=== PATIENT | male | born 1965 | race African-American/Black ===

== ENCOUNTER 2016-06-07 10:51 | Inpatient (IN) | payer MEDICAID ==
[~2016-06-07] VITALS: Ht 190.5 cm; Wt 139.3 kg
[~2016-06-07 10:51] MED LIST: AMIODARONE HCL100 MG ORAL; BENAZEPRIL HCL40 MG ORAL; CARVEDILOL25 MG ORAL; DIGOXIN0.25 MG/5 PO; FUROSEMIDE40 MG/5 ML ORAL; METFORMIN HCL500 M1 ORAL; SPIRONOLACTONE25 MG ORAL; ZOCOR20 MG ORAL
[2016-06-07] MEDS ORDERED: Mylanta II UD 30ml ORAL ONE (11:00)
[2016-06-07] MEDS ORDERED: Morphine Sulfate 2mg/ml Inj IVP ONE (11:00)
[2016-06-07] MEDS ORDERED: Famotidine 20 MG/ 2ML VIAL IVP ONE (11:00)
--- NOTE | 2016-06-07 11:00 | Emergency Room Report ---
History of Present Illness General Chief Complaint: Abdominal Pain Source: Patient, EMS Present Illness HPI Patient presents with epigastric pain. He is also vomiting and is unable to keep anything down for one week. He's suffered from a stroke recently 02/2016) . He is having cardiac monitoring at the moment. Denies any chest pain. He feels weak. Denies vomiting blood and melena. Denies any fevers or chills. He feels weak when he stands up. There is some bile at times when he vomits. The pain is 9/10, more epigastric, radiates slightly to chest, but not to back. H/O HTN and CHF. There is leg edema, but no tenderness of the calves. The stroke left him weak on the L side. He denies prior renal failure. Making urine without dysuria. Denies depression. Allergies: Coded Allergies: No Known Allergies (Verified , 08/16/09) Patient History Past Medical History: see triage record Social History: Denies: smoking Social History Narrative at home with family Reviewed Nursing Documentation: PMH: Agreed, PSxH: Agreed Nursing Documentation-PMH Past Medical History: No History, Except For Hx Cardiac Problems: Yes - RIGHT LEG DVT,CHF,CHOLESTEROL Hx Hypertension: Yes Hx Diabetes: Yes Review of Systems All Other Systems: negative except mentioned in HPI Physical Exam Vital Signs Date Time Temp Pulse Resp B/P Pulse Ox O2 Delivery O2 Flow Rate FiO2 06/07/16 10:49 98.2 80 18 116/66 98 Room Air Sp02 EP Interpretation: reviewed, normal General Appearance: well appearing, no apparent distress, GCS 15, obese Head: normocephalic Eyes: bilateral eye PERRL, bilateral eye normal inspection ENT: dry mucus membranes Neck: supple Respiratory: lungs clear, normal breath sounds, other - event monitor Cardiovascular #1: regular rate, rhythm, edema Cardiovascular #2: 2+ radial (R) Gastrointestinal: normal inspection, normal bowel sounds, no mass, non- distended, no guarding, no rebound, tenderness - epigastric Musculoskeletal: back normal, normal range of motion, no calf tenderness Neurologic: alert, oriented x3, core maker III-XII nml as tested, DTRs symmetric, sensory intact, motor weakness - L 4+/5 Psychiatric: mood/affect normal Skin: normal inspection, warm/dry Medical Decision Making Diagnostic Impression: Primary Impression: Acute renal failure Qualified Codes: N17.9 - Acute kidney failure, unspecified Additional Impressions: Persistent vomiting Abdominal pain Qualified Codes: R10.13 - Epigastric pain Status post stroke ER Course Patient presents with persistent vomiting. Ddx: gastroenteritis, SBO, gastritis , PUD, pancreatitis, dehydration, electrolyte abnormalities, AMI amongst others. Emergent evaluation with EKG, labs, CXR and abd films. Treatment with hydration, zofran, pepcid. Labs significant for renal failure (not needing dialysis). EKG, CXR and abdominal films unremarkable. Improved slightly with treatment, but needs evaluation of renal failure and repeat labs. Admit med Dr. James. Laboratory Tests Test 06/07/16 11:15 06/07/16 12:35 White Blood Count 10.2 K/UL (4.8-10.8) Red Blood Count 4.54 M/UL (4.70-6.10) L Hemoglobin 14.6 G/DL (14.2-18.0) Hematocrit 42.2 % (42.0-52.0) Mean Corpuscular Volume 93 FL (80-99) Mean Corpuscular Hemoglobin 32.1 PG (27.0-31.0) H Mean Corpuscular Hemoglobin Concent 34.6 G/DL (32.0-36.0) Red Cell Distribution Width 12.8 % (11.6-14.8) Platelet Count 153 K/UL (150-450) Mean Platelet Volume 8.4 FL (6.5-10.1) Neutrophils (%) (Auto) 73.5 % (45.0-75.0) Lymphocytes (%) (Auto) 14.7 % (20.0-45.0) L Monocytes (%) (Auto) 10.4 % (1.0-10.0) H Eosinophils (%) (Auto) 0.5 % (0.0-3.0) Basophils (%) (Auto) 0.9 % (0.0-2.0) Prothrombin Time 11.9 SEC (9.30-11.50) H Prothrombin Time INR 1.2 (0.9-1.1) H PTT 27 SEC (23-33) Sodium Level 142 mEQ/L (135-145) Potassium Level 4.6 mEQ/L (3.4-4.9) Chloride Level 102 mEQ/L (98-107) Carbon Dioxide Level 21 mEQ/L (20-30) Anion Gap 19 (5-15) H Blood Urea Nitrogen 28 mg/dL (7-23) H Creatinine 3.0 mg/dL (0.7-1.2) H Estimate Glomerular Filtration Rate 26.9 mL/min (>60) Glucose Level 119 mg/dL (74-106) H Calcium Level 9.0 mg/dL (8.6-10.2) Total Bilirubin 1.5 mg/dL (0.0-1.2) H Direct Bilirubin 0.3 mg/dL (0.1-0.3) Aspartate Amino Transferase (AST) 16 U/L (5-40) Alanine Aminotransferase (ALT) 14 U/L (3-41) Alkaline Phosphatase 78 U/L (40-129) Total Creatine Kinase 61 U/L (38-174) Troponin I < 0.30 ng/mL (<=0.30) Total Protein 7.7 g/dL (6.6-8.7) Albumin 4.0 g/dL (3.5-5.2) Globulin 3.7 g/dL Albumin/Globulin Ratio 1.0 (1.0-2.7) Lipase 20 U/L (< 60) Urine Color Brown Urine Appearance Cloudy Urine pH 5 (4.5-8.0) Urine Specific [place] 1.025 (1.005-1.035) Urine Protein 3+ (NEGATIVE) H Urine Glucose (UA) Negative (NEGATIVE) Urine Ketones 2+ (NEGATIVE) H Urine Occult Blood 5+ (NEGATIVE) H Urine Nitrite Positive (NEGATIVE) H Urine Bilirubin 2+ (NEGATIVE) H Urine Ictotest Negative Urine Urobilinogen 4 MG/DL (0.0-1.0) H Urine Leukocyte Esterase 2+ (NEGATIVE) H Urine RBC Tntc /HPF (0 - 0) H Urine WBC 2-4 /HPF (0 - 0) Urine Squamous Epithelial Cells Many /LPF (NONE/OCC) H Urine Amorphous Sediment Moderate /LPF (NONE) H Urine Bacteria Few /HPF (NONE) EKG Diagnostic Results Rate: normal Rhythm: NSR ST Segments: no acute changes Rhythm Strip Diag. Results EP Interpretation: yes Rhythm: NSR, no PVC's, no ectopy Chest X-Ray Diagnostic Results EP Interpretation: Yes Findings: no consolidation, no effusion, no pneumothorax, no acute cardiopulmonary disease Number of Views: 1 Other X-Ray Diagnostic Results Other X-Ray Diagnostic Results : X-Ray Ordered: abd EP Interpretation: Yes Findings: other - NSBGP, no masses, no SBO Number of Views: 2 Last Vital Signs Date Time Temp Pulse Resp B/P Pulse Ox O2 Delivery O2 Flow Rate FiO2 06/07/16 15:54 98.2 64 18 108/63 99 Room Air Status: improved Disposition: ADMITTED INPATIENT Condition: Serious Ronny Sullivan M.D. Jun 07, 2016 11:00
[2016-06-07 11:32] LABS: BASOPHILS % (AUTO) 0.9 % (0.0-2.0); EOSINOPHILS % (AUTO) 0.5 % (0.0-3.0); LYMPHOCYTES % (AUTO) 14.7 % (20.0-45.0); MEAN CORPUSCULAR HEMOGLOBIN 32.1 PG (27.0-31.0); MEAN CORPUSCULAR HGB CONC 34.6 G/DL (32.0-36.0); MEAN CORPUSCULAR VOLUME 93 FL (80-99); MEAN PLATELET VOLUME 8.4 FL (6.5-10.1); MONOCYTES % (AUTO) 10.4 % (1.0-10.0); NEUTROPHILS % (AUTO) 73.5 % (45.0-75.0); PLATELET COUNT 153 K/UL (150-450); RED BLOOD COUNT 4.54 M/UL (4.70-6.10); RED CELL DISTRIBUTION WIDTH 12.8 % (11.6-14.8); WHITE BLOOD COUNT 10.2 K/UL (4.8-10.8)
[2016-06-07 11:44] LABS: INR 1.2 (0.9-1.1); PROTHROMBIN TIME 11.9 SEC (9.30-11.50)
[2016-06-07 11:47] LABS: TROPONIN I < 0.30 ng/mL (<=0.30)
[2016-06-07 11:50] LABS: ALANINE AMINOTRANSFERASE 14 U/L (3-41); ANION GAP 19 (5-15); ASPARTATE AMINO TRANSFERASE 16 U/L (5-40); CARBON DIOXIDE 21 mEQ/L (20-30); CHLORIDE 102 mEQ/L (98-107); GLOMERULAR FILTRATION RATE 26.9 mL/min (>60); HEMOLYSIS 20; LIPASE 20 U/L (< 60); POTASSIUM 4.6 mEQ/L (3.4-4.9); SODIUM 142 mEQ/L (135-145); TOTAL PROTEIN 7.7 g/dL (6.6-8.7)
[2016-06-07 12:02] LABS: BILIRUBIN,DIRECT 0.3 mg/dL (0.1-0.3)
[2016-06-07] MEDS ORDERED: FAMOTIDINE20 MG ORAL (12:02)
[2016-06-07] MEDS ORDERED: ZOFRAN4 M3 ORAL (12:02)
[2016-06-07] MEDS ORDERED: DIGOXIN250 MCG ORAL (12:06)
[2016-06-07] MEDS ORDERED: TOTAL B WITH C1 EACH PO (12:06)
[2016-06-07] MEDS ORDERED: ATORVASTATIN CA20 MG ORAL (12:06)
[2016-06-07] MEDS ORDERED: LISINOPRIL5 MG ORAL (12:08)
[2016-06-07] MEDS ORDERED: FOLIC ACID1 MG ORAL (12:08)
[2016-06-07] MEDS ORDERED: ASPIR-LOW81 MG ORAL (12:08)
[2016-06-07] MEDS ORDERED: DIGOXIN0.125 MG/2 ORAL (12:08)
[2016-06-07 12:43] VITALS: BP 102/63
[2016-06-07 12:54] LABS: APPEARANCE,URINE CLOUDY; KETONES,URINE 2+ (NEGATIVE); LEUKOCYTE ESTERASE ,URINE 2+ (NEGATIVE); NITRITE,URINE POSITIVE (NEGATIVE); PH,URINE 5 (4.5-8.0); PROTEIN,URINE 3+ (NEGATIVE); UROBILINOGEN,URINE 4 MG/DL (0.0-1.0)
--- NOTE | 2016-06-07 13:01 | Diagnostic Imaging Report ---
Indication: Abdominal pain Technique: Supine view of the abdomen Comparison: none Findings: The bowel gas pattern is unremarkable. No unusual masses or calcifications. There are degenerative changes of the thoracic or lumbar spine Impression: No acute process
[2016-06-07 13:12] LABS: AMORPHOUS SEDIMENT,UR MODERATE /LPF; BACTERIA,URINE FEW /HPF; ICTOTEST NEGATIVE; RBC,URINE TNTC /HPF (0 - 0); SQUAMOUS EPITHELIAL CELL,UR MANY /LPF (NONE/OCC)
--- NOTE | 2016-06-07 13:33 | Diagnostic Imaging Report ---
Indication: Chest pain Technique: One view of the chest Comparison: 10/25/2013 Findings: Lungs and pleural spaces are clear. Heart size is borderline enlarged. Better inspiration on the current exam. Otherwise, no significant change Impression: No acute process
[2016-06-07 15:20] VITALS: BP 108/63
[2016-06-07 15:54] VITALS: BP 108/63
[2016-06-07 16:56] VITALS: BP 119/68
[2016-06-07] MEDS ORDERED: Zolpidem 5mg tab ORAL PRN (17:45)
[2016-06-07] MEDS ORDERED: Morphine Sulfate 4mg/ml Inj IVP PRN (17:45)
[2016-06-07] MEDS ORDERED: Morphine Sulfate 2mg/ml Inj IVP PRN (17:45)
[2016-06-07] MEDS ORDERED: Milk of Magnesia 30ml Ud ORAL PRN (17:45)
[2016-06-07] MEDS ORDERED: Pantoprazole Inj IV SCH (19:30)
[2016-06-07] MEDS ORDERED: Carvedilol 25mg Tab ORAL SCH (19:30)
[2016-06-07] MEDS ORDERED: Amiodarone 200mg tab ORAL SCH (19:30)
[2016-06-07] MEDS ORDERED: Digoxin Elixir 0.125mg ORAL SCH (19:30)
[2016-06-07] MEDS: D5 1/2NS 1,000 ML IV SCH (20:14)
[2016-06-07 20:25] VITALS: BP 111/60
[2016-06-07] MEDS: NovoLOG Insulin Flexpen SUBQ SCH (20:31)
[2016-06-07] MEDS ORDERED: Atorvastatin 20mg tab ORAL SCH (21:00)
[2016-06-08] VITALS (7 sets, daily range): BP systolic 106–117; BP diastolic 59–67
[2016-06-08] MEDS: D5 1/2NS 1,000 ML IV SCH ×3 (05:54→16:15)
[2016-06-08] MEDS: NovoLOG Insulin Flexpen SUBQ SCH ×5 (06:01→21:00)
[2016-06-08] MEDS ORDERED: Morphine Sulfate 2mg/ml Inj IVP PRN (08:45)
[2016-06-08] MEDS ORDERED: Morphine Sulfate 4mg/ml Inj IVP PRN (08:45)
[2016-06-08] MEDS ORDERED: Amiodarone 200mg tab ORAL SCH (09:00)
[2016-06-08] MEDS ORDERED: Carvedilol 25mg Tab ORAL SCH (09:00)
[2016-06-08] MEDS ORDERED: Aspirin EC 81mg tab ORAL SCH (09:00)
[2016-06-08] MEDS: Pantoprazole Inj IV SCH (09:01)
[2016-06-08] MEDS: Aspirin EC 81mg tab ORAL SCH (09:03)
[2016-06-08 09:36] LABS: HEMOGLOBIN A1C 4.8 % (< 6.0)
[2016-06-08 09:42] LABS: CALCIUM 8.6 mg/dL (8.6-10.2); CHOLESTEROL/HDL RATIO 3.1 (3.3-4.4); CREATININE 2.5 mg/dL (0.7-1.2); GLOMERULAR FILTRATION RATE 33.2 mL/min (>60); MAGNESIUM 1.8 mg/dL (1.7-2.5); POTASSIUM 4.3 mEQ/L (3.4-4.9); TOTAL PROTEIN 7.3 g/dL (6.6-8.7)
[2016-06-08 09:57] LABS: BILIRUBIN,DIRECT 0.3 mg/dL (0.1-0.3)
--- NOTE | 2016-06-08 15:53 | Cardiac Electrophysiology PN ---
Subjective Subjective [id number] Objective Last 24 Hour Vital Signs Date Time Temp Pulse Resp B/P Pulse Ox O2 Delivery O2 Flow Rate FiO2 06/08/16 12:00 58 06/08/16 11:40 97.3 60 18 106/59 95 Room Air 06/08/16 09:01 62 113/61 06/08/16 09:00 113/61 06/08/16 08:05 97.0 62 18 113/61 100 Room Air 06/08/16 08:00 60 06/08/16 04:30 98.0 60 20 107/64 99 Room Air 06/08/16 04:00 63 06/08/16 02:39 97.7 65 20 109/66 100 Room Air 06/08/16 00:49 97.9 63 20 117/67 99 Room Air 06/07/16 20:25 97.7 65 18 111/60 96 Room Air 06/07/16 20:23 65 06/07/16 20:04 111/60 06/07/16 19:30 65 111/60 06/07/16 16:56 97.7 68 18 119/68 98 Room Air 06/07/16 16:20 98.2 64 18 108/63 99 Room Air 06/07/16 15:54 98.2 64 18 108/63 99 Room Air Intake and Output 06/07/16 06/08/16 19:00 07:00 Intake Total 240 ml 820 ml Balance 240 ml 820 ml Intake Oral 240 ml 120 ml IV Total 700 ml # Voids 1 2 Laboratory Tests Test 06/08/16 08:35 Sodium Level 142 mEQ/L (135-145) Potassium Level 4.3 mEQ/L (3.4-4.9) Chloride Level 101 mEQ/L (98-107) Carbon Dioxide Level 25 mEQ/L (20-30) Anion Gap 16 (5-15) H Blood Urea Nitrogen 24 mg/dL (7-23) H Creatinine 2.5 mg/dL (0.7-1.2) H Estimat Glomerular Filtration Rate 33.2 mL/min (>60) Glucose Level 110 mg/dL (74-106) H Hemoglobin A1c 4.8 % (< 6.0) Calcium Level 8.6 mg/dL (8.6-10.2) Magnesium Level 1.8 mg/dL (1.7-2.5) Total Bilirubin 1.5 mg/dL (0.0-1.2) H Direct Bilirubin 0.3 mg/dL (0.1-0.3) Aspartate Amino Transf (AST/SGOT) 15 U/L (5-40) Alanine Aminotransferase (ALT/SGPT) 13 U/L (3-41) Alkaline Phosphatase 76 U/L (40-129) Total Protein 7.3 g/dL (6.6-8.7) Albumin 3.7 g/dL (3.5-5.2) Globulin 3.6 g/dL Albumin/Globulin Ratio 1.0 (1.0-2.7) Triglycerides Level 145 mg/dL (< 150) Cholesterol Level 98 mg/dL (< 200) LDL Cholesterol 37 mg/dL (60-99) L HDL Cholesterol 32 mg/dL (> 60) Cholesterol/HDL Ratio 3.1 (3.3-4.4) EMMANUEL SOARES Jun 08, 2016 15:53
[2016-06-08] MEDS: Carvedilol 25mg Tab ORAL SCH (17:40)
[2016-06-08] MEDS ORDERED: Milk of Magnesia 30ml Ud ORAL PRN (17:45)
[2016-06-08] MEDS ORDERED: Zolpidem 5mg tab ORAL PRN (17:45)
--- NOTE | 2016-06-08 20:39 | History and Physical Report ---
DATE OF ADMISSION: 06/07/2016 HISTORY OF PRESENT ILLNESS: The patient is a 50-year-old, male, who is known to me from previous admission in 2009. At that time, he was admitted for pulmonary embolism and DVT. He comes now with epigastric pain, nausea, vomiting and symptoms have been going on for about a week. The patient had also a recent CVA with left-sided weakness. PAST MEDICAL HISTORY: Also history of congestive heart failure, hyperlipidemia, hypertension and diabetes. ALLERGIES: No known drug allergies. SOCIAL HISTORY: The patient lives at home with . No history of smoking or alcohol abuse. REVIEW OF SYSTEMS: As above. PHYSICAL EXAMINATION: GENERAL: The patient is a morbidly obese male, in no acute distress. VITAL SIGNS: Blood pressure 160/66, pulse 80, temperature 98.2 degrees, and respiratory rate 18. HEENT: [place] conjunctivae. Anicteric sclerae. NECK: Supple. LUNGS: Clear to auscultation. HEART: S1 and S2 without murmurs or rubs. ABDOMEN: Soft and nontender. EXTREMITIES: No cyanosis or edema. LABORATORY FINDINGS: The digoxin level is 4.2. Chemistry panel shows serum sodium of 142, potassium 4.3, chloride 101, CO2 25, BUN 24, and creatinine 2.5. Blood sugar is 110. Serum creatinine was 3 yesterday. LDL is 177 and triglycerides 145. CBC shows a WBC of 10.2, hematocrit 42.2, hemoglobin 14.6, and platelets 115,000. ASSESSMENT: This is a 50-year-old, male, who was admitted with nausea, vomiting and diagnosed of beach toxicity. He has a history of congestive heart failure but possibly also atrial fibrillation, based on his medications that he was taking. He has diabetes and hypertension. PLAN: The patient was taken off digoxin. He will be on telemetry bed. His diabetes will be advanced as tolerated. The patient will be seen by machine shorthand teacher, Dr. Paula. Fidel James M.D. DR: KAVON JOB#: [id number] CC:
[2016-06-08] MEDS: Atorvastatin 20mg tab ORAL SCH (21:17)
--- NOTE | 2016-06-08 23:19 | Consultation ---
DATE OF CONSULTATION: 06/08/2016 CARDIOLOGY CONSULTATION REFERRING PHYSICIAN: Fidel James M.D. REASON FOR CONSULTATION: HISTORY OF PRESENT ILLNESS: The patient is a 50-year-old gentleman with a history of hypertension, congestive heart failure, and atrial fibrillation who presented through the emergency room with nausea and vomiting for about one week. The patient, however, denies any chest pain or shortness of breath. The lab work shows that the patient was in renal failure as well as with a creatinine of 3, and was having digoxin level of 4. The patient, however, was in sinus rhythm and was admitted to telemetry for further evaluation. At the time of my evaluation, the patient denies any chest pain, palpitation, or shortness of breath. PAST MEDICAL HISTORY: 1. Hypertension. 2. Congestive heart failure. FAMILY HISTORY: Noncontributory. SOCIAL HISTORY: He does not smoke or drink alcohol. REVIEW OF SYSTEMS: Review of systems was performed and was negative other what was mentioned in the history of present illness. PHYSICAL EXAMINATION: VITAL SIGNS: Blood pressure is 106/59, pulse is 60, respirations 18, and he is afebrile. HEAD AND NECK: Shows no JVD. LUNGS: Clear. CARDIOVASCULAR: Shows regular S1 and S2 without gallop or murmur. ABDOMEN: Soft. EXTREMITIES: 1+ pitting edema. LABORATORY DATA: Lab workup shows white count 10.2, hemoglobin 14.7, hematocrit 42.2, and platelets 152,000. Sodium 142, potassium 4.3, BUN of 24, creatinine of 2.5, and glucose of 110. His digoxin level is 4.2. INR is 1.2. The urinalysis showed too numerous to count RBC, 2 to 4 WBCs, and 5+ occult blood. ASSESSMENT AND PLAN: 1. Digoxin toxicity. This is likely the patient has a history of amiodarone and renal failure. The patient is in sinus rhythm. Decrease amiodarone to 100 mg daily and keep the patient off digoxin at this point. The patient is also on Coreg 25 mg daily that would switch to appropriate dosing of 12.5 mg b.i.d. 2. Congestive heart failure. Echocardiogram is pending. Continue Coreg and Zestril. Decrease Lotensin to 20 mg b.i.d., especially in view of renal failure. 3. Hyperlipidemia, on Lipitor. 4. Renal failure, currently under management by Dr. James. Thank very much, Dr. James, for allowing me to participate in the care of this patient. Please do not hesitate to contact me for any questions regarding my evaluation. Jas Paula M.D. DR: LORI JOB#: [id number] CC:
[2016-06-09] VITALS (7 sets, daily range): BP systolic 89–153; BP diastolic 49–87
[2016-06-09] MEDS: D5 1/2NS 1,000 ML IV SCH ×3 (02:24→22:31)
[2016-06-09] MEDS: NovoLOG Insulin Flexpen SUBQ SCH ×4 (06:08→20:51)
[2016-06-09] MEDS: Amiodarone 200mg tab ORAL SCH (09:00)
[2016-06-09] MEDS: Carvedilol 25mg Tab ORAL SCH (09:00)
[2016-06-09] MEDS ORDERED: Digoxin Elixir 0.125mg ORAL SCH (09:00)
[2016-06-09] MEDS: Pantoprazole Inj IV SCH (09:06)
[2016-06-09] MEDS: Aspirin EC 81mg tab ORAL SCH (09:06)
--- NOTE | 2016-06-09 12:02 | Consultation ---
Consult Note Assessment/Plan Advance diet check Dig level, BMP in AM Discussed with GODWIN Lindsay Jun 09, 2016 12:02
--- NOTE | 2016-06-09 12:02 | Cardiac Electrophysiology PN ---
Assessment/Plan Assessment/Plan 1. Digoxin toxicity. Likely due to effect of amiodarone and renal failure. The patient is in sinus rhythm. Recheck Dig level. 2. Bradycardia. Off Digoxin. Decrease Coreg to 6.25 bid. Continue Amiodarone 200 daily. 3. Congestive heart failure. Echocardiogram is pending. Continue Coreg and Lotensin 20 mg b.i.d. 4. ? Atrial fib based on dig, amio and Coreg. No documentation of atrial fib. Hold off on full anticoagulation specially that patient was not on Coumadin on admission. 5. Hyperlipidemia, on Lipitor. 6. Renal failure, currently under management by Dr. James. DW Dr James Subjective Subjective Feeling better. No arrhythmias on tele. No chest pain or SOB.Lowest heart rate 47 but asymptomatic. Objective Last 24 Hour Vital Signs Date Time Temp Pulse Resp B/P Pulse Ox O2 Delivery O2 Flow Rate FiO2 06/09/16 11:29 97.0 58 18 106/62 98 Room Air 06/09/16 09:00 56 101/59 06/09/16 09:00 101/59 06/09/16 08:00 60 06/09/16 07:50 97.3 56 18 101/59 99 Room Air 06/09/16 04:25 97.0 59 20 102/59 99 Room Air 06/09/16 04:00 54 06/09/16 01:15 103/56 06/09/16 00:05 97.0 58 20 89/49 98 Room Air 06/09/16 00:00 50 06/08/16 20:00 58 18 114/61 98 Room Air 06/08/16 20:00 53 06/08/16 17:40 57 115/61 06/08/16 17:40 115/61 06/08/16 16:00 98.1 57 18 115/61 98 Room Air 06/08/16 16:00 58 06/08/16 12:00 58 Intake and Output 06/08/16 06/09/16 19:00 07:00 Intake Total 240 ml 855 ml Output Total 400 ml Balance -160 ml 855 ml Intake Oral 240 ml IV Total 855 ml Output Urine Total 400 ml Labs Test 06/07/16 12:35 06/08/16 08:35 Urine Color Brown Urine Appearance Cloudy Urine pH 5 (4.5-8.0) Urine Specific [place] 1.025 (1.005-1.035) Urine Protein 3+ (NEGATIVE) Urine Glucose (UA) Negative (NEGATIVE) Urine Ketones 2+ (NEGATIVE) Urine Occult Blood 5+ (NEGATIVE) Urine Nitrite Positive (NEGATIVE) Urine Bilirubin 2+ (NEGATIVE) Urine Ictotest Negative Urine Urobilinogen 4 MG/DL (0.0-1.0) Urine Leukocyte Esterase 2+ (NEGATIVE) Urine RBC Tntc /HPF (0 - 0) Urine WBC 2-4 /HPF (0 - 0) Urine Squamous Epithelial Cells Many /LPF (NONE/OCC) Urine Amorphous Sediment Moderate /LPF (NONE) Urine Bacteria Few /HPF (NONE) Sodium Level 142 mEQ/L (135-145) Potassium Level 4.3 mEQ/L (3.4-4.9) Chloride Level 101 mEQ/L (98-107) Carbon Dioxide Level 25 mEQ/L (20-30) Anion Gap 16 (5-15) Blood Urea Nitrogen 24 mg/dL (7-23) Creatinine 2.5 mg/dL (0.7-1.2) Estimat Glomerular Filtration Rate 33.2 mL/min (>60) Glucose Level 110 mg/dL (74-106) Hemoglobin A1c 4.8 % (< 6.0) Calcium Level 8.6 mg/dL (8.6-10.2) Magnesium Level 1.8 mg/dL (1.7-2.5) Total Bilirubin 1.5 mg/dL (0.0-1.2) Direct Bilirubin 0.3 mg/dL (0.1-0.3) Aspartate Amino Transf (AST/SGOT) 15 U/L (5-40) Alanine Aminotransferase (ALT/SGPT) 13 U/L (3-41) Alkaline Phosphatase 76 U/L (40-129) Total Protein 7.3 g/dL (6.6-8.7) Albumin 3.7 g/dL (3.5-5.2) Globulin 3.6 g/dL Albumin/Globulin Ratio 1.0 (1.0-2.7) Triglycerides Level 145 mg/dL (< 150) Cholesterol Level 98 mg/dL (< 200) LDL Cholesterol 37 mg/dL (60-99) HDL Cholesterol 32 mg/dL (> 60) Cholesterol/HDL Ratio 3.1 (3.3-4.4) Objective HEAD AND NECK: Shows no JVD. LUNGS: Clear. CARDIOVASCULAR: Narciso S1 and S2 without gallop or murmur. ABDOMEN: Soft. EXTREMITIES: 1+ pitting edema. EMMANUEL RILEY Jun 09, 2016 12:02
[2016-06-09] MEDS ORDERED: D5 1/2NS 1000ml IV ONE (16:56)
[2016-06-09] MEDS: Atorvastatin 20mg tab ORAL SCH (20:50)
[2016-06-09] MEDS: Carvedilol 6.25mg Tab ORAL SCH (20:51)
[2016-06-10 00:21] VITALS: BP 107/53
[2016-06-10 04:16] VITALS: BP 100/59
[2016-06-10] MEDS: NovoLOG Insulin Flexpen SUBQ SCH ×3 (06:30→16:30)
[2016-06-10 07:33] LABS: EOSINOPHILS % (AUTO) 1.7 % (0.0-3.0); LYMPHOCYTES % (AUTO) 21.8 % (20.0-45.0); MEAN CORPUSCULAR HEMOGLOBIN 31.9 PG (27.0-31.0); MEAN CORPUSCULAR HGB CONC 34.4 G/DL (32.0-36.0); MEAN CORPUSCULAR VOLUME 93 FL (80-99); MEAN PLATELET VOLUME 8.9 FL (6.5-10.1); MONOCYTES % (AUTO) 12.5 % (1.0-10.0); PLATELET COUNT 148 K/UL (150-450); RED CELL DISTRIBUTION WIDTH 12.7 % (11.6-14.8); WHITE BLOOD COUNT 7.3 K/UL (4.8-10.8)
[2016-06-10 07:56] LABS: DIGOXIN 2.1 ng/mL (0.5-2.0)
[2016-06-10 07:59] LABS: ANION GAP 17 (5-15); CALCIUM 8.2 mg/dL (8.6-10.2); CARBON DIOXIDE 22 mEQ/L (20-30); CHLORIDE 101 mEQ/L (98-107); CREATININE 1.4 mg/dL (0.7-1.2); GLOMERULAR FILTRATION RATE > 60 mL/min (>60); HEMOLYSIS 2; POTASSIUM 3.9 mEQ/L (3.4-4.9); SODIUM 140 mEQ/L (135-145)
[2016-06-10 08:00] VITALS: BP 107/69
--- NOTE | 2016-06-10 08:32 | Cardiology Report ---
APPROVED REPORT EXAM: Two-dimensional and M-mode echocardiogram with Doppler and color Doppler. INDICATION Congestive Heart Failure M-Mode DIMENSIONS IVSd0.9 (0.7-1.1cm)Left Atrium (MM)4.1 (1.6-4.0cm) LVDd6.6 (3.5-5.6cm)Aortic Root3.5 (2.0-3.7cm) PWd1.1 (0.7-1.1cm)Aortic Cusp Exc.2.4 (1.5-2.0cm) LVDs5.6 (2.5-4.0cm) PWs1.0 cm Moderate left ventricular enlargement. Global left ventricular hypokinesis. Mid anterior septal dyskinesis. Apical akinesis. Left ventricular ejection fraction estimated to be 20-25%. No evidence of left ventricular hypertrophy. No evidence of pericardial fat or effusion. Mild left atrial enlargement by 2D. Right cardiac chamber sizes are within normal limits. Focal aortic valve sclerosis with adequate cusp excursion Thickened mitral valve leaflets with normal excursion. Mitral annulus and aortic root calcification. Pulmonic valve is well visualized. Normal tricuspid valve structure. IVC is normal in size with physiologic collapse. False tendon seen in left ventricle. A color flow and spectral Doppler study was performed and revealed: No aortic regurgitation. Mild mitral regurgitation. Left ventricular diastolic dysfunction grade 1. No tricuspid regurgitation.
[2016-06-10] MEDS: Amiodarone 200mg tab ORAL SCH (08:33)
[2016-06-10] MEDS: D5 1/2NS 1,000 ML IV SCH ×2 (08:33→18:15)
[2016-06-10] MEDS: Aspirin EC 81mg tab ORAL SCH (08:33)
[2016-06-10] MEDS: Carvedilol 6.25mg Tab ORAL SCH (08:34)
[2016-06-10 12:00] VITALS: BP 119/66
[2016-06-10] MEDS ORDERED: BENAZEPRIL HCL40 MG ORAL (12:07)
[2016-06-10] MEDS ORDERED: COREG6.25 MG ORAL (12:07)
[2016-06-10] MEDS ORDERED: PACERONE200 MG ORAL (12:07)
--- NOTE | 2016-06-10 12:13 | Consultation ---
Consult Note Assessment/Plan Dc vdictated # [id number] GODWIN CHAUDHRY Jun 10, 2016 12:13
[2016-06-10] MEDS ORDERED: LORazepam Inj 2mg/ml 1ml IV PRN (13:15)
--- NOTE | 2016-06-10 15:30 | Cardiac Electrophysiology PN ---
Assessment/Plan Status Narrative Moderate left ventricular enlargement. Global left ventricular hypokinesis. Mid anterior septal dyskinesis. Apical akinesis. Left ventricular ejection fraction estimated to be 20-25%. No evidence of left ventricular hypertrophy. No evidence of pericardial fat or effusion. Mild left atrial enlargement by 2D. Right cardiac chamber sizes are within normal limits. Focal aortic valve sclerosis with adequate cusp excursion Thickened mitral valve leaflets with normal excursion. Mitral annulus and aortic root calcification. Pulmonic valve is well visualized. Normal tricuspid valve structure. IVC is normal in size with physiologic collapse. False tendon seen in left ventricle. Assessment/Plan 1. Digoxin toxicity. Likely due to effect of amiodarone and renal failure. The patient is in sinus rhythm. Dig level today is 2.1.Keep off Dig 2. Bradycardia. Off Digoxin. Stable on Coreg 6.25 bid and Amiodarone 200 daily. 3. Congestive heart failure with EF 20-25%. Troponin negative. No chest pain. Continue Coreg and Lotensin 20 mg b.i.d.Add Lasix 40 mg po daily. Aldactone as out patient if renal function stabilizes. Cardiac cath as out patient. 4. ? Atrial fib based on dig, Amio and Coreg. No documentation of atrial fib. Hold off on full anticoagulation specially that patient was not on Coumadin on admission. 5. Hyperlipidemia, on Lipitor. 6. Renal failure,Cr improved to 1.4. DW RN Dr James Subjective Subjective Feeling better. No arrhythmias on tele. No chest pain or SOB. Expecting DC today. Objective Last 24 Hour Vital Signs Date Time Temp Pulse Resp B/P Pulse Ox O2 Delivery O2 Flow Rate FiO2 06/10/16 12:00 98.1 62 18 119/66 100 Room Air 06/10/16 12:00 50 06/10/16 08:34 58 107/69 06/10/16 08:33 107/69 06/10/16 08:00 62 06/10/16 08:00 98.1 55 18 107/69 99 06/10/16 04:16 98.6 55 19 100/59 95 Room Air 06/10/16 04:00 56 06/10/16 00:21 98.3 57 20 107/53 95 Room Air 06/10/16 00:00 62 06/09/16 20:51 77 153/87 06/09/16 20:00 97.4 77 18 153/87 97 Room Air 06/09/16 20:00 60 06/09/16 17:19 114/67 06/09/16 16:00 97.1 60 18 114/67 99 Room Air 06/09/16 16:00 54 Intake and Output 06/09/16 06/10/16 19:00 07:00 Intake Total 1240 ml 1100 ml Output Total 550 ml 700 ml Balance 690 ml 400 ml Intake Oral 240 ml IV Total 1000 ml 1100 ml Output Urine Total 550 ml 700 ml Laboratory Tests Test 06/10/16 07:04 White Blood Count 7.3 K/UL (4.8-10.8) Red Blood Count 4.10 M/UL (4.70-6.10) L Hemoglobin 13.1 G/DL (14.2-18.0) L Hematocrit 37.9 % (42.0-52.0) L Mean Corpuscular Volume 93 FL (80-99) Mean Corpuscular Hemoglobin 31.9 PG (27.0-31.0) H Mean Corpuscular Hemoglobin Concent 34.4 G/DL (32.0-36.0) Red Cell Distribution Width 12.7 % (11.6-14.8) Platelet Count 148 K/UL (150-450) L Mean Platelet Volume 8.9 FL (6.5-10.1) Neutrophils (%) (Auto) 63.0 % (45.0-75.0) Lymphocytes (%) (Auto) 21.8 % (20.0-45.0) Monocytes (%) (Auto) 12.5 % (1.0-10.0) H Eosinophils (%) (Auto) 1.7 % (0.0-3.0) Basophils (%) (Auto) 1.0 % (0.0-2.0) Sodium Level 140 mEQ/L (135-145) Potassium Level 3.9 mEQ/L (3.4-4.9) Chloride Level 101 mEQ/L (98-107) Carbon Dioxide Level 22 mEQ/L (20-30) Anion Gap 17 (5-15) H Blood Urea Nitrogen 14 mg/dL (7-23) Creatinine 1.4 mg/dL (0.7-1.2) H Estimat Glomerular Filtration Rate > 60 mL/min (>60) Glucose Level 127 mg/dL (74-106) H Calcium Level 8.2 mg/dL (8.6-10.2) L Digoxin Level 2.1 ng/mL (0.5-2.0) H Objective HEAD AND NECK: Shows no JVD. LUNGS: Clear. CARDIOVASCULAR: Narciso S1 and S2 without gallop or murmur. ABDOMEN: Soft. EXTREMITIES: 1+ pitting edema. EMMANUEL RILEY Jun 10, 2016 15:30
[2016-06-10 16:00] VITALS: BP 119/68
[2016-06-10] MEDS ORDERED: D5 1/2NS 1000ml IV ONE (16:55)
--- NOTE | 2016-06-11 00:18 | Discharge Summary ---
DATE OF ADMISSION: 06/07/2016 DATE OF DISCHARGE: 06/10/2016 CHIEF COMPLAINT: Nausea and vomiting. HISTORY OF PRESENT ILLNESS: This is a 50-year-old male, who was admitted with epigastric pain, nausea, and vomiting. The patient had symptoms for about a week. HOSPITAL COURSE: The patient was started on IV fluids. He was found to have acute renal failure from prerenal azotemia with a BUN of 28 and creatinine of 3.0. He was also taking amiodarone and digoxin. His digoxin level came at 4.2 on 06/07/2016. The patient's digoxin was discontinued. The patient was seen by Dr. Paula in Cardiology consultation and recommended to stop the digoxin altogether. The level was rechecked again on 06/10/2016 and was 2.1. Meanwhile, the patient had improved. He was not vomiting again, so his diet which was originally NPO and then later liquids was finally switched to regular diet and the patient tolerated the diet well. His serum creatinine came down to 1.4 as of 06/10/2016. In terms of his medications, he was on amiodarone 200 mg twice a day, which was decreased to 200 mg once a day. Also, his Coreg was reduced by Dr. Paula to 6.125 mg twice a day and his benazepril was decreased to 20 mg b.i.d. and on that regimen, he was sent home in stable condition. DISCHARGE DIAGNOSES: 1. Nausea and vomiting as a result of digoxin toxicity. 2. Acute renal failure as a result of prerenal azotemia. 3. Reported history of congestive heart failure. 4. History of diabetes. 5. History of hypertension. Fidel James M.D. DR: PRIYA JOB#: [id number] CC:
[2016-06-11] MEDS ORDERED: Furosemide 40mg tab ORAL SCH (09:00)
== END 2016-06-10 19:14 | disposition home or self-care (01) | DRG 249 ==
LOC: EDBD 10:51 → EMR 11:00 → 3E 14:02 → EDBEDREQ 15:08 → 2E 06-08 02:21
DX: R11.2 Nausea with vomiting, unspecified (principal); N17.9 Acute kidney failure, unspecified; I11.0 Hypertensive heart disease with heart failure; I69.354 Hemiplegia and hemiparesis following cerebral infarction affecting left non-dominant side; I50.9 Heart failure, unspecified; R10.13 Epigastric pain; I48.91 Unspecified atrial fibrillation; R00.1 Bradycardia, unspecified; I10 Essential (primary) hypertension; E11.9 Type 2 diabetes mellitus without complications; E78.5 Hyperlipidemia, unspecified; T88.7XXA Unspecified adverse effect of drug or medicament, initial encounter; T46.0X5A Adverse effect of cardiac-stimulant glycosides and drugs of similar action, initial encounter; Y92.019 Unspecified place in single-family (private) house as the place of occurrence of the external cause
CPT/HCPCS: 36415; 71010; 74000; 80048; 80053; 80061; 80162; 81003; 82248; 82550; 82962; 83036; 83690; 83735; 84484; 85025; 85610; 85730; 93005; 93306; J1815; J2405

== ENCOUNTER 2016-08-18 07:25 | Emergency (ER) | payer MEDICAID, OTHER ==
[~2016-08-18] VITALS: Ht 188 cm; Wt 136.1 kg
[~2016-08-18 07:25] MED LIST changes: +ASPIR-LOW81 MG ORAL; +ATORVASTATIN CA20 MG ORAL; +COREG6.25 MG ORAL; +DIGOXIN0.125 MG/2 ORAL; +DIGOXIN250 MCG ORAL; +FAMOTIDINE20 MG ORAL; +FOLIC ACID1 MG ORAL; +LISINOPRIL5 MG ORAL; +PACERONE200 MG ORAL; +TOTAL B WITH C1 EACH PO; +ZOFRAN4 M3 ORAL
--- NOTE | 2016-08-18 07:28 | Emergency Room Report ---
History of Present Illness General Chief Complaint: Chest Pain Source: Patient, Medical Record, EMS Present Illness HPI 50YOM BIBEMS with substernal non-radiating, sharp, 8/10 chest pain since 1am (7 hours). Pain woke him up. Consistent. Nothing makes it better. Nitro by EMS no improvement. PMHx of DM, HTN, CHF. Admission in May 2016 for digoxin toxicity and ARF. Was told to stop Dig altogether. Patient states PMD told him subsequently to restart. EF on Echo in may was 20-25%. SerumCr 1.4 on discharge. HOSPITAL COURSE: The patient was started on IV fluids. He was found to have acute renal failure from prerenal azotemia with a BUN of 28 and creatinine of 3.0. He was also taking amiodarone and digoxin. His digoxin level came at 4.2 on 06/07/2016. The patient's digoxin was discontinued. The patient was seen by Dr. Paula in Cardiology consultation and recommended to stop the digoxin altogether. The level was rechecked again on 06/10/2016 and was 2.1. Meanwhile, the patient had improved. He was not vomiting again, so his diet which was originally NPO and then later liquids was finally switched to regular diet and the patient tolerated the diet well. His serum creatinine came down to 1.4 as of 06/10/2016. In terms of his medications, he was on amiodarone 200 mg twice a day, which was decreased to 200 mg once a day. Also, his Coreg was reduced by Dr. Paula to 6.125 mg twice a day and his benazepril was decreased to 20 mg b.i.d. and on that regimen, he was sent home in stable condition. Allergies: Coded Allergies: No Known Allergies (Verified , 08/16/09) Patient History Past Medical History: other - See HPI Past Surgical History: none Pertinent Family History: none Social History: Denies: alcohol use, drug use, smoking Immunizations: UTD Reviewed Nursing Documentation: PMH: Agreed, PSxH: Agreed Nursing Documentation-PMH Hx Cardiac Problems: Yes - RIGHT LEG DVT,CHOLESTEROL Hx Hypertension: Yes Hx Diabetes: Yes Hx Cancer: No Hx Gastrointestinal Problems: No Hx Neurological Problems: Yes - stoke 03/04/2016 Hx Weakness: Yes - CVA left side Review of Systems All Other Systems: negative except mentioned in HPI Physical Exam Vital Signs Date Time Temp Pulse Resp B/P Pulse Ox O2 Delivery O2 Flow Rate FiO2 08/18/16 07:19 74 18 102/64 100 Room Air Sp02 EP Interpretation: reviewed, normal General Appearance: normal inspection, well appearing, no apparent distress, alert, GCS 15, non-toxic Head: normocephalic, atraumatic Eyes: bilateral eye EOMI, bilateral eye PERRL ENT: normal ENT inspection, hearing grossly normal, normal voice Neck: normal inspection, full range of motion, supple, no bony tend Respiratory: normal inspection, lungs clear, normal breath sounds, no respiratory distress, no retraction, no accessory muscle use, no wheezing, other - Chest pain very reproducible with palpation, chest symmetrical Cardiovascular #1: regular rate, rhythm, no edema Gastrointestinal: normal inspection, normal bowel sounds, non tender, soft, no guarding, no hernia Genitourinary: no CVA tenderness Musculoskeletal: normal inspection, back normal, normal range of motion, Symone' s Sign negative Neurologic: normal inspection, alert, oriented x3, responsive, account general manager III-XII nml as tested, speech normal Psychiatric: normal inspection, judgement/insight normal, mood/affect normal Skin: normal inspection, normal color, no rash Lymphatic: normal inspection Medical Decision Making Diagnostic Impression: Primary Impression: Chest pain Qualified Codes: R07.9 - Chest pain, unspecified Additional Impressions: Hypokalemia CKD (chronic kidney disease) Qualified Codes: N18.9 - Chronic kidney disease, unspecified ER Course Chest pain - VS notable for hypotension likely d/t 3x nitro spray by EMS - ECG: new Qwaves in leads V2 and 3, and are more dagger-like compared to June 07 ECG. - Troponin 0. - Digoxin level sub-therapeutic - HypoK repleted in ED - PVCs seen on monitor Patient has DM, HTN, CKD, and CHF with known low EF Warrants admission to tele for further evaluation, ACS r/o Endorsed to Dr Whitt at 822am for tele admission and transfer to [facility] transfer EKG Diagnostic Results Rate: normal, other - 1st degree AV block Rhythm: NSR ST Segments: other - Q waves in V2-4, 3, AVL Rhythm Strip Diag. Results EP Interpretation: yes Rate: 67 Rhythm: NSR, no ectopy, other - ++PVCs Chest X-Ray Diagnostic Results EP Interpretation: Yes Findings: no consolidation, no effusion, no pneumothorax, no acute cardiopulmonary disease Number of Views: 1 Last Vital Signs Date Time Temp Pulse Resp B/P Pulse Ox O2 Delivery O2 Flow Rate FiO2 08/18/16 07:19 74 18 102/64 100 Room Air Status: improved Disposition: ADMITTED INPATIENT Condition: Serious RICARDO MOORE M.D. Aug 18, 2016 07:28
[2016-08-18 07:30] VITALS: BP 96/64
[2016-08-18] MEDS ORDERED: BENAZEPRIL HCL40 MG ORAL (07:41)
[2016-08-18] MEDS ORDERED: AMIODARONE HCL400 M1 ORAL (07:41)
[2016-08-18] MEDS ORDERED: CARVEDILOL25 MG ORAL (07:41)
[2016-08-18] MEDS ORDERED: DIGOXIN125 MCG ORAL (07:41)
[2016-08-18 07:44] LABS: BASOPHILS % (AUTO) 0.9 % (0.0-2.0); EOSINOPHILS % (AUTO) 0.4 % (0.0-3.0); LYMPHOCYTES % (AUTO) 23.5 % (20.0-45.0); MEAN CORPUSCULAR HEMOGLOBIN 30.7 PG (27.0-31.0); MEAN CORPUSCULAR HGB CONC 32.3 G/DL (32.0-36.0); MEAN CORPUSCULAR VOLUME 95 FL (80-99); MEAN PLATELET VOLUME 9.2 FL (6.5-10.1); MONOCYTES % (AUTO) 8.5 % (1.0-10.0); NEUTROPHILS % (AUTO) 66.7 % (45.0-75.0); PLATELET COUNT 230 K/UL (150-450); RED BLOOD COUNT 4.55 M/UL (4.70-6.10); RED CELL DISTRIBUTION WIDTH 11.8 % (11.6-14.8); WHITE BLOOD COUNT 6.5 K/UL (4.8-10.8)
[2016-08-18 07:58] LABS: ALANINE AMINOTRANSFERASE 12 U/L (3-41); ANION GAP 10 (5-15); ASPARTATE AMINO TRANSFERASE 15 U/L (5-40); CALCIUM 8.4 mg/dL (8.6-10.2); CARBON DIOXIDE 29 mEQ/L (20-30); CHLORIDE 100 mEQ/L (98-107); CREATININE 1.4 mg/dL (0.7-1.2); GLOMERULAR FILTRATION RATE > 60 mL/min (>60); HEMOLYSIS 17; POTASSIUM 2.9 mEQ/L (3.4-4.9); SODIUM 139 mEQ/L (135-145); TOTAL PROTEIN 6.4 g/dL (6.6-8.7); TROPONIN I < 0.30 ng/mL (<=0.30)
[2016-08-18 08:08] LABS: CKMB < 1.5 ng/mL (< 6.7); DIGOXIN 0.4 ng/mL (0.5-2.0)
[2016-08-18] MEDS ORDERED: KCl 10% 40mEq/30ml liquid ORAL ONE (08:15)
[2016-08-18 08:18] LABS: BILIRUBIN,DIRECT 0.4 mg/dL (0.1-0.3)
[2016-08-18] MEDS ORDERED: Morphine Sulfate 2mg/ml Inj IVP ONE (08:30)
[2016-08-18 09:00] VITALS: BP 97/60
--- NOTE | 2016-08-18 09:20 | Diagnostic Imaging Report ---
Indication: Chest Pain Comparison: 06/07/16 A single view chest radiograph was obtained. Findings: Cardiomediastinal appearance is within normal limits for age. Pulmonary vascularity is appropriate. The diaphragmatic contour is smooth and costophrenic angles are sharp. No pleural effusions are identified. The bones are unremarkable. Impression: No acute findings
[2016-08-18 10:00] VITALS: BP 100/61
[2016-08-18 12:00] VITALS: BP 108/66
--- NOTE | 2016-08-18 17:50 | Cardiology Report ---
APPROVED REPORT EKG Measurement Heart [id number] Sinus rhythm with 1st degree AV block Inferior infarct, age undetermined Anterior infarct, age undetermined Abnormal ECG
== END 2016-08-18 12:20 | disposition short-term general hospital (02) ==
LOC: EDBD 07:25 → EMR 07:32 → CANBEDREQ 12:10 → EMR 12:20
DX: R07.89 Other chest pain (principal); E87.6 Hypokalemia; I12.9 Hypertensive chronic kidney disease with stage 1 through stage 4 chronic kidney disease, or unspecified chronic kidney disease; N18.9 Chronic kidney disease, unspecified; E11.9 Type 2 diabetes mellitus without complications; I69.354 Hemiplegia and hemiparesis following cerebral infarction affecting left non-dominant side; I50.9 Heart failure, unspecified; Z86.718 Personal history of other venous thrombosis and embolism
CPT/HCPCS: 36415; 71010; 80053; 80162; 82248; 82550; 82553; 84484; 85025; 93005; 96374; 99285; J2270; J8499

== ENCOUNTER 2016-10-17 08:28 | Observation (INO) | payer MEDICAID, OTHER ==
[~2016-10-17] VITALS: Ht 190.5 cm; Wt 109.8 kg
[~2016-10-17 08:28] MED LIST changes: +AMIODARONE HCL400 M1 ORAL; +DIGOXIN125 MCG ORAL
--- NOTE | 2016-10-17 08:41 | Emergency Room Report ---
History of Present Illness General Chief Complaint: Chest Pain Source: Patient Present Illness HPI Patient is a 51-year-old male presented after increased chest pain. The patient having pain for approximately one day. Pain is intermittent in nature. The patient had prior history of cardiac disease and was noted to have been scheduled for a pacemaker and AICD placement. Patient denies been a previous smoker. He does not have any reported prior history of drug use. The patient states he takes multiple medications. He does not currently taking diuretics. Allergies: Coded Allergies: No Known Allergies (Verified , 08/16/09) Patient History Past Medical History: see triage record Reviewed Nursing Documentation: PMH: Agreed, PSxH: Agreed Nursing Documentation-PMH Past Medical History: No History, Except For Hx Cardiac Problems: Yes - RIGHT LEG DVT,CHOLESTEROL Hx Hypertension: Yes Hx Diabetes: Yes Hx Cancer: No Hx Gastrointestinal Problems: No Hx Neurological Problems: Yes - stoke 03/04/2016 Hx Weakness: Yes - CVA left side Review of Systems All Other Systems: negative except mentioned in HPI Physical Exam Vital Signs Date Time Temp Pulse Resp B/P Pulse Ox O2 Delivery O2 Flow Rate FiO2 10/17/16 08:29 98.8 82 18 97/65 100 Room Air Sp02 EP Interpretation: reviewed, normal General Appearance: normal inspection, well appearing, no apparent distress, alert, GCS 15, non-toxic Head: atraumatic ENT: normal ENT inspection, hearing grossly normal, normal voice Neck: normal inspection, full range of motion, supple, no bony tend Respiratory: normal inspection, lungs clear, normal breath sounds, no respiratory distress, no retraction, no wheezing Cardiovascular #1: regular rate, rhythm, no edema Gastrointestinal: normal inspection, normal bowel sounds, non tender, soft, no guarding, no hernia Genitourinary: no CVA tenderness Musculoskeletal: normal inspection, back normal, normal range of motion Neurologic: normal inspection, alert, oriented x3, responsive, ticket collector III-XII nml as tested, motor strength/tone normal, speech normal Psychiatric: normal inspection, judgement/insight normal, mood/affect normal Skin: normal inspection, normal color, no rash Medical Decision Making Diagnostic Impression: Primary Impression: Chest pain Additional Impressions: Cardiomyopathy CHF (congestive heart failure) ER Course Patient presented for chest pain. Differential diagnosis included but was not limited to acute coronary syndrome, pulmonary embolism, pneumonia, aortic dissection, shingles, pneumothorax, aortic dissection, esophageal rupture, pericarditis. Because of complexity of patient's case laboratory testing and imaging studies were ordered. Chest x-ray one view. Lab for studies were notable for elevated BNP as well as normal troponin the patient was discussed with Dr. Monet from [facility] for transfer due to HMO. Patient was given aspirin by paramedics. The patient noted be pain-free throughout emergency stay. Patient was given IV Lasix. Labs Test 10/17/16 09:10 10/17/16 11:30 White Blood Count 7.5 K/UL (4.8-10.8) Red Blood Count 4.18 M/UL (4.70-6.10) Hemoglobin 13.2 G/DL (14.2-18.0) Hematocrit 41.2 % (42.0-52.0) Mean Corpuscular Volume 99 FL (80-99) Mean Corpuscular Hemoglobin 31.6 PG (27.0-31.0) Mean Corpuscular Hemoglobin Concent 32.0 G/DL (32.0-36.0) Red Cell Distribution Width 11.9 % (11.6-14.8) Platelet Count 220 K/UL (150-450) Mean Platelet Volume 7.3 FL (6.5-10.1) Neutrophils (%) (Auto) 68.1 % (45.0-75.0) Lymphocytes (%) (Auto) 19.9 % (20.0-45.0) Monocytes (%) (Auto) 10.6 % (1.0-10.0) Eosinophils (%) (Auto) 0.5 % (0.0-3.0) Basophils (%) (Auto) 0.9 % (0.0-2.0) Sodium Level 139 mEQ/L (135-145) Potassium Level 3.8 mEQ/L (3.4-4.9) Chloride Level 101 mEQ/L (98-107) Carbon Dioxide Level 21 mEQ/L (20-30) Anion Gap 17 (5-15) Blood Urea Nitrogen 8 mg/dL (7-23) Creatinine 1.4 mg/dL (0.7-1.2) Estimat Glomerular Filtration Rate > 60 mL/min (>60) Glucose Level 97 mg/dL (74-106) Calcium Level 8.4 mg/dL (8.6-10.2) Total Bilirubin 1.1 mg/dL (0.0-1.2) Direct Bilirubin 0.3 mg/dL (0.1-0.3) Aspartate Amino Transf (AST/SGOT) 12 U/L (5-40) Alanine Aminotransferase (ALT/SGPT) 9 U/L (3-41) Alkaline Phosphatase 70 U/L (40-129) Total Creatine Kinase 36 U/L (38-174) Creatine Kinase MB < 1.5 ng/mL (< 6.7) Creatine Kinase MB Relative Index 4.1 Troponin I < 0.30 ng/mL (<=0.30) Pro-B-Type Natriuretic Peptide 1646 pg/mL (0-125) Total Protein 6.3 g/dL (6.6-8.7) Albumin 2.7 g/dL (3.5-5.2) Globulin 3.6 g/dL Albumin/Globulin Ratio 0.7 (1.0-2.7) Lipase 16 U/L (< 60) EKG Diagnostic Results Rate: normal Rhythm: NSR ST Segments: other - poor rwave progression Rhythm Strip Diag. Results EP Interpretation: yes Rhythm: NSR, no PVC's, no ectopy Chest X-Ray Diagnostic Results Chest X-Ray Diagnostic Results : Chest X-Ray Ordered: Yes # of Views/Limited/Complete: 1 View Indication: Chest Pain EP Interpretation: No Interpretation: no consolidation, no effusion, no pneumothorax, no acute cardiopulmonary disease Impression: No acute disease Last Vital Signs Date Time Temp Pulse Resp B/P Pulse Ox O2 Delivery O2 Flow Rate FiO2 10/17/16 08:29 98.8 82 18 97/65 100 Room Air Status: unchanged [facility] Condition: Serious Thanh Lucia Oct 17, 2016 08:41
[2016-10-17 09:28] LABS: BASOPHILS % (AUTO) 0.9 % (0.0-2.0); EOSINOPHILS % (AUTO) 0.5 % (0.0-3.0); LYMPHOCYTES % (AUTO) 19.9 % (20.0-45.0); MEAN CORPUSCULAR HEMOGLOBIN 31.6 PG (27.0-31.0); MEAN CORPUSCULAR VOLUME 99 FL (80-99); MEAN PLATELET VOLUME 7.3 FL (6.5-10.1); MONOCYTES % (AUTO) 10.6 % (1.0-10.0); NEUTROPHILS % (AUTO) 68.1 % (45.0-75.0); PLATELET COUNT 220 K/UL (150-450); RED BLOOD COUNT 4.18 M/UL (4.70-6.10); RED CELL DISTRIBUTION WIDTH 11.9 % (11.6-14.8); WHITE BLOOD COUNT 7.5 K/UL (4.8-10.8)
--- NOTE | 2016-10-17 09:35 | Diagnostic Imaging Report ---
Indication: SOB Technique: XRAY CHEST 1 V. Comparison: 08/18/2016 Findings: The cardiomediastinal silhouette is stable. There are no acute infiltrates. No pleural fluid. Impression: No acute abnormality. No change from prior exam. .
[2016-10-17 09:48] LABS: ALANINE AMINOTRANSFERASE 9 U/L (3-41); ALBUMIN/GLOBULIN RATIO 0.7 (1.0-2.7); ASPARTATE AMINO TRANSFERASE 12 U/L (5-40); CALCIUM 8.4 mg/dL (8.6-10.2); CARBON DIOXIDE 21 mEQ/L (20-30); CREATININE 1.4 mg/dL (0.7-1.2); GLOMERULAR FILTRATION RATE > 60 mL/min (>60); HEMOLYSIS 29; LIPASE 16 U/L (< 60); TOTAL PROTEIN 6.3 g/dL (6.6-8.7)
[2016-10-17 09:49] LABS: TROPONIN I < 0.30 ng/mL (<=0.30)
[2016-10-17 09:55] VITALS: BP 96/58
[2016-10-17 10:05] LABS: CKMB < 1.5 ng/mL (< 6.7)
[2016-10-17 10:23] LABS: ANION GAP 17 (5-15); CHLORIDE 101 mEQ/L (98-107); POTASSIUM 3.8 mEQ/L (3.4-4.9); SODIUM 139 mEQ/L (135-145)
[2016-10-17 10:40] LABS: BILIRUBIN,DIRECT 0.3 mg/dL (0.1-0.3)
[2016-10-17 11:32] VITALS: BP 102/63
[2016-10-17 14:21] VITALS: BP 99/63
[2016-10-17 16:00] VITALS: BP 108/67
[2016-10-17] MEDS ORDERED: TAMSULOSIN HCL0.4 MG ORAL (16:46)
[2016-10-17 20:12] VITALS: BP 98/65
[2016-10-17 21:00] VITALS: BP 98/65
[2016-10-17] MEDS ORDERED: Tamsulosin 0.4mg cap ORAL SCH (21:00)
[2016-10-17] MEDS ORDERED: Atorvastatin 20mg tab ORAL SCH (21:00)
[2016-10-17] MEDS ORDERED: Carvedilol 6.25mg Tab ORAL SCH (21:00)
[2016-10-18] MEDS ORDERED: Amiodarone 200mg tab ORAL SCH (09:00)
[2016-10-18] MEDS ORDERED: Aspirin EC 81mg tab ORAL SCH (09:00)
[2016-10-18] MEDS ORDERED: Digoxin 0.125mg tab ORAL SCH (09:00)
--- NOTE | 2016-10-18 18:30 | History and Physical Report ---
DATE OF ADMISSION: 10/17/2016 HISTORY OF PRESENT ILLNESS: This is a 51-year-old male, who came to the hospital with chest pain. He describes the pain as being left precordial, intermittent. He has a history of a cardiac condition and states that he is scheduled for further interventions. He has been smoker in the past. He was seen and admitted to the hospital as there was no beds available at a contracted facility. PAST MEDICAL HISTORY: Previous DVT, hyperlipidemia, cardiac disease, hypertension, diabetes mellitus, and previous CVA. MEDICATIONS: Summarized in the chart. REVIEW OF SYSTEMS: He denies any headaches, hematemesis, melena, hematochezia, night sweats, or weight loss. PHYSICAL EXAMINATION: GENERAL: Reveals a 51-year-old male. VITAL SIGNS: Blood pressure is 130/70, heart rate 84, respiratory rate 18, he is afebrile, and O2 saturation 97% on room air. HEENT: Unremarkable. CHEST: Clear breath sounds bilaterally. ABDOMEN: Soft. EXTREMITIES: There is no edema. NEUROLOGIC: Nonfocal. LABORATORY AND DIAGNOSTIC DATA: X-ray of chest was notable for mild vascular congestion. Lab studies showed elevated BNP. Remaining labs were unremarkable. Troponins negative. Creatinine 1.4. IMPRESSION: 1. Mild pulmonary edema. 2. Chest pain. 3. History of previous deep venous thrombosis. 4. Hyperlipidemia. 5. Cardiac disease. DISCUSSION: Admitted to the hospital. It is my anticipation that the patient will be transferred to contracted Hospital. EKG shows normal sinus rhythm. We will follow as concession supervisor. Mushtaq Arvizu M.D. DR: JONATHAN JOB#: [id number] CC:
--- NOTE | 2016-10-19 19:01 | Cardiology Report ---
APPROVED REPORT EKG Measurement Heart [id number] Sinus rhythm with sinus arrhythmia with 1st degree AV block Left axis deviation Inferior infarct, age undetermined Anterior infarct, age undetermined Abnormal ECG
== END 2016-10-17 21:56 | disposition short-term general hospital (02) ==
LOC: EDBD 08:28 → EMR 08:59 → EDBEDREQ 14:17 → 2E 14:20
DX: R07.9 Chest pain, unspecified (principal); J81.1 Chronic pulmonary edema; I42.9 Cardiomyopathy, unspecified; I50.9 Heart failure, unspecified; E78.5 Hyperlipidemia, unspecified; I10 Essential (primary) hypertension; E11.9 Type 2 diabetes mellitus without complications; Z86.718 Personal history of other venous thrombosis and embolism; Z95.810 Presence of automatic (implantable) cardiac defibrillator; Z86.73 Personal history of transient ischemic attack (TIA), and cerebral infarction without residual deficits; Z87.891 Personal history of nicotine dependence
CPT/HCPCS: 36415; 71010; 80053; 80300; 82248; 82550; 82553; 83690; 83880; 84484; 85025; 93005; 99285; G0378; J1940